=== PATIENT | male | born 1945 ===

== ENCOUNTER 2018-04-16 07:33 | Day surgery (SDC) | payer OTHER ==
[2018-04-16 08:08] VITALS: BMI 24.3
[2018-04-16] MEDS ORDERED: Lactated Ringer's 1,000 ML IV ONE ×2 (08:39)
--- NOTE | 2018-04-16 08:39 | CP.SDSHP ---
Same Day Surgery H & P - History Proposed Procedure: COLONSCOPY Pre-Op Diagnosis: SEE NOTES - Previous Medical/Surgical History Cardiac: Hypertension Misc: Other Pain: 2.Mild Pain - Allergies Allergies: Allergies No Known Allergies Allergy (Verified 04/16/18 08:07) - Physical Exam General Appearance: N Vital Signs: Vital Signs 04/16/18 08:11 Temperature 97.8 F Pulse Rate 80 Respiratory 20 Rate Blood Pressure 103/81 O2 Sat by Pulse 100 Oximetry Mental Status: Alert & Oriented x3 Neuro: WNL Heart: Other Lungs: WNL GI: Other - {Optional Preform as Required} Breast: WNL Abdomen: Other Rectal: Other Integument: WNL : WNL Ortho: WNL ENT: WNL - Impression Pt. Evaluated Today:Candidate for Anesthesia & Procedure: Yes - Date & Time Time: 08:40 Short Stay Discharge - Short Stay Discharge Admitting Diagnosis/Reason for Visit: HEMORRHAGE OF ANUS AND RECTUM Disposition: HOME/ ROUTINE
[2018-04-16] MEDS ORDERED: Propofol 10 mg/ml Inj (20 ML) ONE (08:40)
[2018-04-16] MEDS ORDERED: Belladonna-Phenobarbital PO ONE (09:25)
[2018-04-16] MEDS ORDERED: Lidocaine Hydrochloride 5 ML INJ ONE (09:40)
[2018-04-16 11:55] VITALS: TEMP 97
[2018-04-16 12:03] VITALS: BP 135/65; PULSE 66; RESP 15; O2SAT 98
== END 2018-04-16 10:43 | disposition home or self-care (01) ==
LOC: C.ENDO 07:33
PROVIDERS: ATTEND Specialist
DX: K62.5 Hemorrhage of anus and rectum (principal); D12.2 Benign neoplasm of ascending colon; K64.8 Other hemorrhoids; D12.4 Benign neoplasm of descending colon
CPT/HCPCS: 45385; 88305; J2704; J7120